=== PATIENT | female | born 1970 | race Caucasian/White ===

== ENCOUNTER 2017-01-12 17:34 | Emergency (ER) | payer BC ==
--- NOTE | ~2017-01-12 | EKG ---
PATIENT: CARLOS DEL ANGEL UNIT #: [id number] Ventricular Rate: 103 BPM Atrial Rate: 103 BPM P-R Interval: 122 ms QRS Duration: 74 ms Q-T Interval: 340 ms QTC Calculation(Bezet): 445 ms P [place]: 35 degrees Calculated R [place]: 83 degrees Calculated T [place]: 37 degrees Diagnosis Line: Sinus tachycardia Diagnosis Line: Junctional ST depression, probably normal Diagnosis Line: Borderline ECG Diagnosis Line: No previous ECGs available Diagnosis Line: Confirmed by JERO KEATING MD ([id number]) on Diagnosis Line: 01/14/2017 3:23:47 PM INTERPRETING MD: ZURI MEJIA
--- NOTE | ~2017-01-12 | EKG ---
PATIENT: CARLOS DEL ANGEL UNIT #: [id number] Ventricular Rate: 89 BPM Atrial Rate: 89 BPM P-R Interval: 138 ms QRS Duration: 98 ms Q-T Interval: 378 ms QTC Calculation(Bezet): 459 ms P [place]: 39 degrees Calculated R [place]: 78 degrees Calculated T [place]: 45 degrees Diagnosis Line: Normal sinus rhythm Diagnosis Line: Normal ECG Diagnosis Line: When compared with ECG of 12-JAN-2017 17:39, Diagnosis Line: (unconfirmed) Diagnosis Line: No significant change was found Diagnosis Line: Confirmed by JERO KEATING MD ([id number]) on Diagnosis Line: 01/14/2017 3:24:02 PM INTERPRETING MD: ZURI MEJIA
--- NOTE | ~2017-01-12 | CR72 ---
[facility]. [facility] A Service of [facility] & [facility] / [facility] RADIOLOGY TEXT RESULTS PATIENT: CARLOS DEL ANGEL LOCATION: SED : 72 UNIT #: [id number] AGE: [address]: Jammie Zamora MD SEX: F ORDER DR: [id number] [place] [id number] [id number] E MR#: [id number] Acc #: [id number] NAME: CARLOS DEL ANGEL : 1970 SEX: F STUDY DATE/TIME: 01/12/2017 19:02 UNIT: SED ROOM: STUDY DESCRIPTION: CR Chest Single View Portable Attending Physician: Jammie Zamora M.D. Ordering Physician: Jammie Zamora M.D. Primary Care Physician: Elizabeth Chacon A.P.R.N. MEDICAL IMAGING REPORT This report is preliminary unless electronic signature is present. EXAM Portable chest, 01/12 INDICATION Chest pain that started today. COMPARISON 09/07/2008 FINDINGS A single AP portable view of the chest shows both lungs to be clear. The heart is normal in size. The mediastinal contour is normal. No significant bone abnormalities are seen. IMPRESSION Normal portable chest. Dictated by... Gelacio Mueller Jr., M.D. THIS IS AN ELECTRONICALLY VERIFIED REPORT Gelacio Mueller Jr., M.D. at 01/15/2017 4:23 PM MANDO/miki TD: 01/13/2017 05:14 JOB #: [id number] MEDICAL IMAGING REPORT Page 1 of 1
[~2017-01-12 17:34] MED LIST: MUCINEX DM1 TAB.SR . PO; NABUMETONE PO; NORCO 7.5/325 T1 TAB PO; ZITHROMAX PO
[2017-01-12] MEDS ORDERED: ZANAFLEX (17:47)
[2017-01-12] MEDS ORDERED: INDOMETHACIN25 MG (17:47)
[2017-01-12] MEDS ORDERED: GABAPENTIN300 MG PO (17:47)
[2017-01-12] MEDS ORDERED: CHOLESTEROL MED (17:48)
[2017-01-12 18:29] LABS: BASOPHIL# 0.1 X10e3 (0-0.3); BASOPHIL% 1.1 % (0-2.5); EOSINOPHIL# 1.4 X10e3 (0-0.7); EOSINOPHIL% 11.5 % (0.0-7.0); HEMATOCRIT 43.3 % (35.0-45.0); HEMOGLOBIN 14.6 gm/dL (12.0-16.0); LYMPHOCYTE# 3.6 X10e3 (1.0-3.5); LYMPHOCYTE% 28.5 % (17.0-45.0); MEAN CELL VOLUME 87.8 FL (83-96); MEAN CORPUSCULAR HEMOGLOBIN 29.7 PG (28-34); MEAN CORPUSCULAR HGB CONC 33.8 g/dL (30-36); MEAN PLATELET VOLUME 8.4 FL (6.5-11.5); MONOCYTE% 7.9 % (3.0-12.0); NEUTROPHIL# 6.4 X10e3 (1.5-7.1); PLATELET COUNT 278 X10e3 (140-420); RED BLOOD COUNT 4.93 X10e (3.90-5.30); RED CELL DISTRIBUTION WIDTH 14.6 % (11.0-15.5); WHITE BLOOD COUNT 12.6 X10e3 (4.0-10.5)
[2017-01-12 18:35] LABS: DIFF IND NO
[2017-01-12 18:43] LABS: PROTHROMBIN TIME (PATIENT) 11.5 SECONDS (9.5-12.4)
[2017-01-12 18:47] LABS: POC - CKMB <1.0 ng/mL (0.0-7.9); POC - TROPONIN <0.05 ng/mL (<=0.05)
[2017-01-12 18:52] LABS: BILIRUBIN, DIRECT 0.1 mg/dL (0.0-0.2); BILIRUBIN,INDIRECT 0.4 mg/dL (0.0-0.9); BILIRUBIN,TOTAL 0.5 mg/dL (0.2-2.0); BUN/CREATININE RATIO 11.25; CALCIUM SERUM 9.2 mg/dL (8.4-10.2); CREATININE SERUM 0.8 mg/dL (0.6-1.4); GLOM FILT RATE Estimated 89.1 mL/min (>60); POTASSIUM 3.8 mmol/L (3.5-5.1); PROTEIN TOTAL SERUM 7.4 g/dL (6.0-8.3)
[2017-01-12 18:57] LABS: DDIMER <200 NG/ML (0-200)
[2017-01-12 20:09] LABS: POC - CKMB <1.0 ng/mL (0.0-7.9); POC - TROPONIN <0.05 ng/mL (<=0.05)
== END 2017-01-12 22:25 | disposition home or self-care (01) ==
LOC: SED 17:34
PROVIDERS: Student in an Organized Health Care Education/Training Program
DX: R07.2 Precordial pain (principal); I10 Essential (primary) hypertension; E78.5 Hyperlipidemia, unspecified; F17.200 Nicotine dependence, unspecified, uncomplicated; Z79.899 Other long term (current) drug therapy; Z88.8 Allergy status to other drugs, medicaments and biological substances
CPT/HCPCS: 36415; 71010; 80048; 80076; 82553; 83880; 84484; 84703; 85025; 85379; 85610; 85730; 93005; 96361; 96374; 96375; 99285; C9113; J2270; J2405